=== PATIENT | female | born 1985 | race Caucasian/White ===

== ENCOUNTER 2021-02-09 02:32 | Emergency (ER) | payer BC, MEDICAID ==
[~2021-02-09] VITALS: Ht 160 cm; Wt 77.1 kg
[2021-02-09 02:34] VITALS: BP 133/60
[2021-02-09 02:47] VITALS: BP 133/60
--- NOTE | 2021-02-09 02:48 | NUR ---
PATIENT [facility]. PATIENT EXAMINED BY DR. VANCE. PATIENT MEDICALLY CLEARED AND RELEASED IN CUSTODY IN STABLE CONDITION. ORIGINAL PRE-BOOK FORM GIVEN TO OFFICER SAUL.
== END 2021-02-09 02:48 ==
LOC: MED 02:32
DX: Z04.1 Encounter for examination and observation following transport accident (principal); Z02.89 Encounter for other administrative examinations
CPT/HCPCS: 99283